=== PATIENT | male | born 2000 ===

== ENCOUNTER 2025-01-15 20:44 | Emergency (ER) | payer OTHER | END 2025-01-15 22:17 | disposition home or self-care (01) | LOC: DL.ED 20:44 | DX: S86.102A Unspecified injury of other muscle(s) and tendon(s) of posterior muscle group at lower leg level, left leg, initial encounter (principal); X50.0XXA Overexertion from strenuous movement or load, initial encounter; Y93.89 Activity, other specified | CPT/HCPCS: 73562; 99283; A9270; 99282 ==